=== PATIENT | male | born 1995 | race Caucasian/White ===

== ENCOUNTER 2018-10-22 19:56 | Emergency (ER) | payer OTHER, SELFPAY ==
[2018-10-22 20:10] VITALS: BP 146/87; PULSE 85; RESP 20; TEMP 36.9; O2SAT 100; BMI 21.9
--- NOTE | 2018-10-22 20:36 | HMH.EDUTC ---
[facility] – [place] Disposition Clinical Impression: Foreign body in eye Qualifiers: Encounter type: initial encounter Laterality: left Qualified Code(s): T15.92XA - Foreign body on external eye, part unspecified, left eye, initial encounter Disposition: Home, Self-Care Condition on Discharge: Good Instructions: DI for Foreign Body in the Eye Additional Instructions: Call Dr Johnson tomorrow at [phone] if any worsening of symptoms, pain in eye, signs of infection such as redness or drainage or vision changes *If no problems or complication and no worsening of eye pain or symptoms call [facility] Wednesday and advise them Dr Johnson wanted you seen in the clinic on Wednesday *Return if needed Do not scratch or rub eye Straight to ER if any life threatening symptoms Referrals: Provider,Referral, MD [Primary Care Provider] - Dr Aldo Johnson [Other] Medical Decision Making - Wilbert Inquiry Pt receiving controlled substance: No Wilbert was queried for this patient: No Vital Signs: 10/22/18 20:10 Temperature 98.4 F Temperature Source Oral Pulse Rate [Right Brachial] 85 Respiratory Rate 20 Blood Pressure [Right Arm] 146/87 H Blood Pressure Mean [Right Arm] 106 Blood Pressure Source [Right Arm] Automatic Cuff Blood Pressure Position [Right Arm] Sitting 02 Sat by Pulse Oximetry 100 Oxygen Delivery Method Room Air - Reevaluation(s) Time: 20:30 Reevaluation #1: Consulted with Dr Mcdaniel about transferring patient to ER due to foreign body in eye Dr Mcdaniel recommended contacting Dr Johnson and speaking with him about removal of piece of metal and further treatment instructions. Called Dr Johnson and he advised if the metal in the eye was not bothering the patient and no pain or signs of infection to give him his cell phone number and advise him to call him tomorrow if any worsening of symptoms to meet him at the clinic and remove the FB and if not then he would see him on Wednesday in the clinic Recommended not prescribing drop or ointment at this time at risk of causing infection that he would prescribe something when he took it out. Patient still denies trouble with vision or pain [facility] [place] HPI - General Stated complaint: AO 10/20/18 Possible FB in left eye Time Seen by Provider: 10/22/18 20:20 Mode of Arrival: Family Vehicle Source of Information: Patient Limitations: No Limitations Description of Symptoms (Recalled from Triage Doc. by RN): C/O METAL IN LEFT EYE HEENT Symptoms (Recalled from RN notes): Yes Resp Symptoms (Recalled from RN notes): No Skin Symptoms (Recalled from RN notes): No MS Symptoms (Recalled from RN notes): No Functional Status (Recalled from RN notes): N/A - History of Present Illness Provider Complaint: Patient states that he thinks he may have a small piece of metal in his left eye States that thinks it has been there since State that it hasn't been causing any pain or problems just at times when he blinks he can feel it and has been unable to get it out so he came in to see if it could be taken out here - Related Data Allergies Allergy/AdvReac Type Severity Reaction Status Date / Time No Known Allergies Allergy Verified 01/11/18 20:33 - Worker's Comp Is this a Worker's Comp case?: No H History - Hepatitis A Screen Drug use history?: No High risk sexual behaviors?: No History of sexually transmitted infection?: No Currently employed?: No Childcare worker?: No Do you have indoor plumbing?: Yes Do you have electricity?: Yes Attestation statement:: This patient has been screened for Hepatitis A risk factors. I have reviewed the patient's past medical history: Yes Medical History: Denies:: Diabetes Mellitus Type 1, Diabetes Mellitus Type 2 Other Surgeries: Yes: No Previous Surgery - Social History Smoking Status: Current every day smoker Tobacco Type: cigarettes # Packs/Day (cigarettes): 1 Alcohol Intake: never Occupational Status: other - Psychiatric History Ex
--- NOTE | 2018-10-22 20:39 | ED_ITS ---
[facility] [place] Clinical Impression: Foreign body in eye Qualifiers: Encounter type: initial encounter Laterality: left Qualified Code(s): T15.92XA - Foreign body on external eye, part unspecified, left eye, initial encounter Disposition: Home, Self-Care Condition on Discharge: Good Instructions: DI for Foreign Body in the Eye Additional Instructions: Call Dr Johnson tomorrow at [phone] if any worsening of symptoms, pain in eye, signs of infection such as redness or drainage or vision changes *If no problems or complication and no worsening of eye pain or symptoms call [facility] Wednesday and advise them Dr Johnson wanted you seen in the clinic on Wednesday *Return if needed Do not scratch or rub eye Straight to ER if any life threatening symptoms Referrals: Provider,Referral, MD [Primary Care Provider] - Dr Aldo Johnson [Other] Medical Decision Making - Wilbert Inquiry Pt receiving controlled substance: No Wilbert was queried for this patient: No Vital Signs: 10/22/18 20:10 Temperature 98.4 F Temperature Source Oral Pulse Rate [Right Brachial] 85 Respiratory Rate 20 Blood Pressure [Right Arm] 146/87 H Blood Pressure Mean [Right Arm] 106 Blood Pressure Source [Right Arm] Automatic Cuff Blood Pressure Position [Right Arm] Sitting 02 Sat by Pulse Oximetry 100 Oxygen Delivery Method Room Air - Reevaluation(s) Time: 20:30 Reevaluation #1: Consulted with Dr Mcdaniel about transferring patient to ER due to foreign body in eye Dr Mcdaniel recommended contacting Dr Johnson and speaking with him about removal of piece of metal and further treatment instructions. Called Dr Johnson and he advised if the metal in the eye was not bothering the patient and no pain or signs of infection to give him his cell phone number and advise him to call him tomorrow if any worsening of symptoms to meet him at the clinic and remove the FB and if not then he would see him on Wednesday in the clinic Recommended not prescribing drop or ointment at this time at risk of causing infection that he would prescribe something when he took it out. Patient still denies trouble with vision or pain [facility] [place] - General Stated complaint: AO 10/20/18 Possible FB in left eye Time Seen by Provider: 10/22/18 20:20 Mode of Arrival: Family Vehicle Source of Information: Patient Limitations: No Limitations Description of Symptoms (Recalled from Triage Doc. by RN): C/O METAL IN LEFT EYE HEENT Symptoms (Recalled from RN notes): Yes Resp Symptoms (Recalled from RN notes): No Skin Symptoms (Recalled from RN notes): No MS Symptoms (Recalled from RN notes): No Functional Status (Recalled from RN notes): N/A - History of Present Illness Provider Complaint: Patient states that he thinks he may have a small piece of metal in his left eye States that thinks it has been there since State that it hasn't been causing any pain or problems just at times when he blinks he can feel it and has been unable to get it out so he came in to see if it could be taken out here - Related Data Allergies Allergy/AdvReac Type Severity Reaction Status Date / Time No Known Allergies Allergy Verified 01/11/18 20:33 - Worker's Comp Is this a Worker's Comp case?: No [facility] History - Hepatitis A Screen Drug use history?: No High risk sexual behaviors?: No History of sexually transmitted infection?
[2018-10-22 20:56] VITALS: BP 146/87; PULSE 85; RESP 20; TEMP 36.9; O2SAT 100
== END 2018-10-22 20:57 | disposition home or self-care (01) ==
PROVIDERS: Emergency Provider Nurse Practitioner
DX: T15.92XA Foreign body on external eye, part unspecified, left eye, initial encounter (principal); F17.210 Nicotine dependence, cigarettes, uncomplicated
CPT/HCPCS: 99201

== ENCOUNTER → 2018-12-28 18:18 | Outpatient (CLI) | payer OTHER, SELFPAY ==
[2018-12-28 19:09] LABS: Basophils # 0.1 K/mm3 (0-0.2); Basophils % 0.6 % (0.1-2.0); Eosinophils # 0.1 K/mm3 (0.0-0.4); Eosinophils % 1.6 % (0.1-12.0); Hematocrit 49.3 % (42.0-52.0); Hemoglobin 16.5 g/dL (14.1-18.0); Lymphocytes # 2.7 K/mm3 (0.7-4.5); Lymphocytes % 28.9 % (10-50); Mean Corpuscular HGB Conc 33.4 g/dL (31.8-35.4); Mean Corpuscular Hemoglobin 28.7 pg (27.0-31.2); Mean Corpuscular Volume 85.9 fl (80-94); Mean Platelet Volume 7.6 fl (7.4-10.4); Monocytes # 0.7 K/mm3 (0.1-1.0); Monocytes % 7.3 % (1.7-9.3); Neutrophils # 5.7 K/mm3 (1.8-7.8); Neutrophils % 61.7 % (37.0-80.0); Platelet Count 382 K/mm3 (142-424); Red Blood Count 5.74 M/mm3 (4.60-6.20); Red Cell Distribution Width 12.7 % (11.5-17.5); White Blood Count 9.2 K/mm3 (4.8-10.8)
[2018-12-28 20:09] LABS: Erythrocyte Sedimentation Rate 2 mm/hr (0-15)
[2018-12-28 21:02] LABS: Alanine Aminotransferase 19 U/L (12-78); Albumin Level 4.7 gm/dL (3.4-5.0); Albumin/Globulin Ratio 1.5 (1.1-1.8); Alkaline Phosphatase 54 U/L (46-116); Anion Gap 13.2 mEq/L (5-15); Aspartate Amino Transferase 7 U/L (15-37); Bilirubin,Total 0.7 mg/dL (0.2-1.0); Blood Urea Nitrogen 11 mg/dL (7-18); Calcium 9.7 mg/dL (8.5-10.1); Carbon Dioxide 29 mmol/L (21.0-32.0); Chloride 101 mmol/L (98-107); Creatinine,Serum 0.73 mg/dL (0.70-1.30); Estimated Glomerular Filt Rate 132 ml/min (>60); GFR (African American) 160 ML/MIN (>60); Globulin 3.1 gm/dl (1.3-3.2); Glucose 98 mg/dL (74-106); Potassium 4.2 mmoL/L (3.5-5.1); Sodium 139 mmol/L (136-145); Total Protein,Serum 7.8 gm/dL (6.4-8.2)
[2018-12-28 21:08] LABS: C-Reactive Protein < 0.2 mg/dL (0.0-0.9)
[2018-12-30 09:27] LABS: Hep A Ab, IgM Negative (Negative); Hepatitis B Core Antibody IgM Negative (Negative); Hepatitis B Surface Antigen Negative (Negative)
[2018-12-30 09:47] LABS: Hepatitis C Antibody <0.1 s/co ratio (0.0-0.9)
== END ==
PROVIDERS: Visit Provider Emergency Medicine
DX: J02.9 Acute pharyngitis, unspecified (principal); M54.5 Low back pain; R51 Headache
CPT/HCPCS: 80053; 80074; 85025; 85651; 86140

== ENCOUNTER → 2019-01-06 14:49 | Outpatient (CLI) | payer OTHER, SELFPAY ==
--- NOTE | 2019-01-06 14:50 | CT_ITS ---
PROCEDURE: CT SINUS WO CON CLINICAL HISTORY: Sinusitis COMPARISON: No exams were available for comparison TECHNIQUE: Axial images obtained with sagittal and coronal reformats. All CT scans at the facility use one or more dose reduction, viz: automated exposure control, ma/kV adjustment per patient size (including targeted exams where dose is matched to indication, i.e. head), or iterative reconstruction technique. FINDINGS: There is complete opacification of the right frontal sinus and moderate opacification of the anterior ethmoids on the right and posterior ethmoids bilaterally. There is only minimal mucosal thickening of the maxillary sinuses inferiorly. There is a prominent nasal septal spur inferiorly projecting toward the left causing severe narrowing of the left nasal canal. There are small bilateral crissy bullosa. The ostiomeatal units are narrowed bilaterally. TMJs have an unremarkable appearance. The orbits have an unremarkable appearance. IMPRESSION: 1. Paranasal sinus inflammatory changes of the right frontal and ethmoid sinuses bilaterally the 2. Comes left for projecting septal spur causing severe narrowing of the left nasal canal inferiorly Dictated by: Addy Rizo MD 01/06/2019 16:57 Signed by: <Electronically signed by Addy Rizo MD in [place]> 01/06/2019 16:57
== END ==
PROVIDERS: PCP Emergency Medicine; Visit Provider Otolaryngology
DX: J32.9 Chronic sinusitis, unspecified (principal)
CPT/HCPCS: 70486

== ENCOUNTER → 2019-05-30 17:10 | Outpatient (CLI) | payer OTHER, SELFPAY ==
[2019-05-30 18:49] LABS: Free T4 (Free Thyroxine) 1.15 ng/dl (0.76-1.46); Thyroid Stimulating Hormone 3.38 uIU/ml (0.358-3.740)
== END ==
PROVIDERS: Visit Provider Emergency Medicine
DX: R22.9 Localized swelling, mass and lump, unspecified (principal)
CPT/HCPCS: 84439; 84443

== ENCOUNTER → 2019-06-19 14:17 | Outpatient (CLI) | payer OTHER, SELFPAY ==
--- NOTE | 2019-06-19 14:17 | CT_ITS ---
PROCEDURE: CT SOFT TISSUE NECK W CON CLINICAL HISTORY: soft tissue swelling Right neck mass COMPARISON: CT SINUS WO CON from 01/06/2019 TECHNIQUE: Oral Contrast: 75ml Optiray 350 IV Contrast: None Axial images obtained with sagittal and coronal reformats. All CT scans at the facility use one or more dose reduction, viz: automated exposure control, ma/kV adjustment per patient size (including targeted exams where dose is matched to indication, i.e. head), or iterative reconstruction technique. FINDINGS: A BB is placed over the palpable abnormality of the right neck. Just deep to the BB is the sternocleidomastoid muscle and a small subcutaneous vein. No soft tissue mass or adenopathy is evident at this region. No cervical adenopathy apparent. No abscess or other abnormality evident. The salivary glands, nasopharynx, oropharynx, hypopharynx, and glottic region have an unremarkable appearance. The lung apices are clear aside from some minimal fibrotic change. IMPRESSION: No obvious neck mass apparent. There is a normal appearing sternocleidomastoid present deep to the placed BB. There is a small subcutaneous vein deep to the placed BB. Dictated by: Addy Rizo MD 06/19/2019 15:21 Electronically signed by Addy Rizo MD in [place] 06/19/2019 15:21
== END ==
PROVIDERS: PCP Emergency Medicine; Visit Provider Emergency Medicine
DX: R22.9 Localized swelling, mass and lump, unspecified (principal)
CPT/HCPCS: 70491; Q9967

== ENCOUNTER 2020-04-16 09:59 | Emergency (ER) | payer BC, SELFPAY ==
[2020-04-16 10:07] VITALS: BP 139/81; PULSE 90; RESP 19; TEMP 37.1; O2SAT 98; BMI 20.3
--- NOTE | 2020-04-16 10:17 | HMH.EDUTC ---
[facility] – [place] Disposition Clinical Impression: Sinusitis Qualifiers: Sinusitis location: unspecified location Chronicity: unspecified Qualified Code(s): J32.9 - Chronic sinusitis, unspecified Disposition: Home, Self-Care Condition on Discharge: Good Instructions: Sinusitis, Sinus Headache, Amoxicillin and Clavulanic Acid Additional Instructions: *Monitor Temp, Over the counter Motrin or Tylenol as directed/as needed Tylenol every 4 hours and Motrin every 6 hours (as long as your family doctor has told you that you can take it) for fever or pain. and straight to ER if unable to lower temp less than 101.0 after medication given *Warm salt water gargles may help to soothe the throat *Throat Lozenges *Warm fluids like tea with honey may help to soothe the throat *Sleep elevated *Humidifier/Vaporizer Follow up IMMEDIATELY for new or worsening symptoms or no Noticeable improvement over the next 48-72 hours. 911 for difficulty breathing or swallowing You were tested for today for COVID19 your test result should be back in the next 24-48 hours, you may call to the [facility] to see if your test results are back in the next 48 hours [phone] [facility] hours are 9am-9pm You was given a handout with instructions for Self Quarantine and Self isolation for while you wait on test results and what to do if they are positive If you are positive the Health Dept will be contacting you also Prescriptions: Amoxicillin/Potassium Clav [Augmentin 875-125 Tablet] 1 tab PO Q12H 10 Days #20 tab Transmission Status: Pending to [facility] methylPREDNISolone [Medrol 4mg tab] 4 mg PO DIRECTED #21 tab Transmission Status: Pending to [facility] Referrals: Ronald Mcdaniel MD [Primary Care Provider] - As needed Forms: Work/School Release Time of Disposition: 10:32 Medical Decision Making - Wilbert Inquiry Pt receiving controlled substance: No Wilbert was queried for this patient: No Vital Signs: 04/16/20 10:07 Temperature 98.7 F Temperature Source Oral Pulse Rate [Radial] 90 Respiratory Rate 19 Blood Pressure [Right Arm] 139/81 Blood Pressure Mean [Right Arm] 100 Blood Pressure Source [Right Arm] Automatic Cuff Blood Pressure Position [Right Arm] Sitting 02 Sat by Pulse Oximetry 98 Oxygen Delivery Method Room Air - Lab Data Lab results reviewed: Yes: I reviewed the patient's lab results. Orders (Tests/Meds): ORDERS Category Date Time Status Covid-19 Nasal PCR Sendout Jaspreet Stat Lab 04/16/20 10:11 Ordered [facility] [place] HPI - General Stated complaint: body aches, chills Time Seen by Provider: 04/16/20 10:17 Mode of Arrival: Ambulatory Source of Information: Patient Limitations: No Limitations Description of Symptoms (Recalled from Triage Doc. by RN): body aches, chills, dry cough x 3 days HEENT Symptoms (Recalled from RN notes): Yes Resp Symptoms (Recalled from RN notes): No Skin Symptoms (Recalled from RN notes): No MS Symptoms (Recalled from RN notes): No Functional Status (Recalled from RN notes): wnl - History of Present Illness Provider Complaint: Patient state that he has been having sinus pain and pressure, scratchy throat, body aches dry cough State that he has a history of sinus problems States that he was worried that he may have COVID and wanted to get checked for flu and COVID - Related Data Previous Rx's Medication Instructions Recorded Amoxicillin/Potassium Clav 1 tab PO Q12H 14 Days #28 tab 05/26/19 [Augmentin 875-125 Tablet] Amoxicillin/Potassium Clav 1 tab PO Q12H 10 Days #20 tab 04/16/20 [Augmentin 875-125 Tablet] methylPREDNISolone [Medrol 4mg 4 mg PO DIRECTED #21 tab 04/16/20 tab] Allergies Allergy/AdvReac Type Severity Reaction Status Date / Time No Known Allergies Allergy Verified 05/30/19 16:10 - Worker's Comp Is this a Worker's Comp case?: No [facility] History - Hepatitis A Screen Drug use history?: No High risk sexual behaviors?: No History
[2020-04-16 10:34] VITALS: BP 139/81; PULSE 90; RESP 19; TEMP 37.1; O2SAT 98
[2020-04-16 19:52] LABS: UTC Influenza A Antigen Negative (Negative)
[2020-04-16 19:53] LABS: UTC Influenza B Antigen Negative (Negative)
[2020-04-17 13:55] LABS: Covid-19 Nasal PCR Sendout Lex POSITIVE
--- NOTE | 2020-04-17 14:04 | PC.NURSE ---
Patient notified of positive COVID results. Educated on quarantine.
== END 2020-04-16 10:41 | disposition home or self-care (01) ==
PROVIDERS: Emergency Provider Nurse Practitioner; PCP Emergency Medicine
DX: U07.1 COVID-19 (principal); J32.9 Chronic sinusitis, unspecified
CPT/HCPCS: 87804; 99201; U0004

== ENCOUNTER → 2020-07-17 18:50 | Outpatient (CLI) | payer BC, SELFPAY ==
[2020-07-17 19:02] LABS: Basophils % 0.5 % (0.1-2.0); Eosinophils # 0.2 K/mm3 (0.0-0.4); Eosinophils % 2.7 % (0.1-12.0); Hematocrit 46.3 % (42.0-52.0); Hemoglobin 15.3 g/dL (14.1-18.0); Lymphocytes # 2.4 K/mm3 (0.7-4.5); Lymphocytes % 30.9 % (10-50); Mean Corpuscular Hemoglobin 28.8 pg (27.0-31.2); Mean Corpuscular Volume 87.2 fl (80-94); Monocytes # 0.5 K/mm3 (0.1-1.0); Monocytes % 6.4 % (1.7-9.3); Neutrophils # 4.5 K/mm3 (1.8-7.8); Neutrophils % 59.5 % (37.0-80.0); Platelet Count 331 K/mm3 (142-424); Red Cell Distribution Width 13.1 % (11.5-17.5); White Blood Count 7.6 K/mm3 (4.8-10.8)
[2020-07-17 19:05] LABS: Alanine Aminotransferase 15 U/L (12-78); Albumin Level 4.9 g/dl (3.5-5.0); Albumin/Globulin Ratio 1.7 (1.1-1.8); Alkaline Phosphatase 52 U/L (38-126); Amylase 72 U/L (30-110); Anion Gap 15.6 mEq/L (5-15); Aspartate Amino Transferase 26 U/L (17-59); Bilirubin,Total 0.7 mg/dl (0.2-1.3); Blood Urea Nitrogen 11 mg/dl (9-20); Calcium 9.6 mg/dl (8.4-10.2); Carbon Dioxide 26 mmol/L (22.0-30.0); Chloride 101 mmol/L (98-107); Estimated Glomerular Filt Rate 137 ml/min (>60); GFR (African American) 166 ML/MIN (>60); Globulin 2.9 g/dL (1.3-3.2); Glucose 86 mg/dl (74-100); Lipase 55 U/L (23-300); Potassium 4.6 mmoL/L (3.5-5.1); Sodium 138 mmol/L (136-145); Total Protein,Serum 7.8 g/dl (6.3-8.2)
== END ==
PROVIDERS: Visit Provider Emergency Medicine
DX: R10.11 Right upper quadrant pain (principal); K21.9 Gastro-esophageal reflux disease without esophagitis; R53.83 Other fatigue
CPT/HCPCS: 80053; 82150; 83690; 85025

== ENCOUNTER 2021-01-24 20:13 | Emergency (ER) | payer OTHER, SELFPAY ==
--- NOTE | 2021-01-24 20:04 | ECG_ITS ---
APPROVED REPORT Exam: Resting ECG HR:97 bpm ECG Measurements Heart Rate 97 AXES WA 134 P 83 QRSd 108 QRS 87 QT 340 T 58 QTc 431 Conclusion Normal sinus rhythm Possible Left atrial enlargement Incomplete right bundle branch block Borderline ECG Electronically signed by : Chano Menon MD 01/25/2021 21:10:49
[2021-01-24 20:13] VITALS: BP 137/89; PULSE 99; RESP 15; TEMP 37.1; O2SAT 100; BMI 20.3
--- NOTE | 2021-01-24 20:19 | HMH.EDGENADL ---
ED Disposition Clinical Impression: Atypical chest pain Disposition: Home, Self-Care Condition on Discharge: Good Instructions: DI for Atypical Chest Pain Additional Instructions: You may take ibuprofen for pain. Additional instructions for CHEST PAIN: See your physician as soon as possible for further evaluation. Return immediately if worsening chest pain, vomiting, shortness of breath, fever, coughing of blood. Referrals: Ronald Mcdaniel MD [Primary Care Provider] - - Critical Care Critical Care Time: No Attestation: On , the high probability of a clinically significant, sudden or life threatening deterioration of the following system(s) required my full and direct attention, intervention and personal management. The time I documented below is in addition to time spent performing reported procedures but includes the following listed in this critical care notation. Medical Decision Making - Wilbert Inquiry Pt receiving controlled substance: No Vital Signs: 01/24/21 20:13 01/24/21 20:47 Temperature 98.8 F Temperature Source Oral Pulse Rate [Right] 99 H Respiratory Rate 15 15 Blood Pressure 151/86 H Blood Pressure [Right Arm] 137/89 Blood Pressure Mean [Right Arm] 105 Blood Pressure Source [Right Arm] Automatic Cuff 02 Sat by Pulse Oximetry 100 100 Oxygen Delivery Method Room Air Room Air - Lab Data Lab Results 01/24/21 20:08: WBC 10.8, RBC 5.72, Hgb 17.3, Hct 49.8, MCV 87.1, MCH 30.2, MCHC 34.6, RDW 12.2, Plt Count 333, MPV 7.6, Neut % (Auto) 68.6, Lymph % (Auto) 23.0, [place] % (Auto) 6.0, Eos % (Auto) 2.0, Baso % (Auto) 0.5, Neut # (Auto) 7.4, Lymph # (Auto) 2.5, [place] # (Auto) 0.6, Eos # (Auto) 0.2, Baso # (Auto) 0.1 01/24/21 20:08: Sodium 140, Potassium 3.5, Chloride 101, Carbon Dioxide 26, Anion Gap 16.5 H, BUN 12, Creatinine 0.70, Estimated Creat Clear 133, Estimated GFR 136, Est GFR ( Amer) 165, Glucose 103 H, Calcium 9.7, Troponin I < 0.01 Result diagrams: 01/24/21 20:08 01/24/21 20:08 Orders (Tests/Meds): ED MEDICATIONS Discontinued Medications Generic Name Dose Route Start Last Admin Trade Name Freq PRN Reason Stop Dose Admin Ketorolac Tromethamine 30 mg 01/24/21 20:50 01/24/21 20:51 Ketorolac 30mg/Ml Vial IV 01/24/21 20:51 30 mg ONCE ONE Administration ORDERS Category Date Time Status Troponin I Q3H Lab 01/24/21 23:30 Ordered Troponin I Q3H Lab 01/25/21 02:30 Ordered - Radiology Data #1 Image(s): Chest Image Reviewed: Yes I reviewed the patient's radiology image, Yes I have reviewed radiologist's interpretation PROCEDURE INFORMATION: Exam: XR Chest Exam date and time: 01/24/21 08:19 PM Age: 25 years old Clinical indication: Pain; Left-sided; Additional info: Cp, SOA left chest pain TECHNIQUE: Imaging protocol: XR of the chest. Views: 2 views. COMPARISON: CT SOFT TISSUE NECK W CON 06/19/19 02:59 PM FINDINGS: Lungs: Unremarkable. No consolidation. Pleural spaces: Unremarkable. No pleural effusion. No pneumothorax. Heart/Mediastinum: Unremarkable. No cardiomegaly. Bones/joints: Unremarkable. IMPRESSION: No acute findings. - ECG Data Tracing #1 EKG interpreted by Bala Koo MD: Rhythm: sinus Rate: 89 [place]: normal Ectopy: none Conduction: Incomplete right bundle branch block ST Segment Changes: none T Wave Changes: none Q Waves: none No evidence of acute ischemia or injury - KARLI Score for Non-Stemi Age of Patient: <30 years old Heart Rate: 90-109 bpm Systolic Blood Pressure: 120-139 mmhg Serum Creatinine: 0.40-0.79 mg/dl CHF [place] Class: I-No CHF Other Risk Factors: None Non-Stemi Risk Score: 53 Medical Decision Narrative: PULMONARY EMBOLISM RULE-OUT CRITERIA: 1. Age > 49? No 2. Pulse greater than 99/min? No 3. Room air pulse ox <95%? No 4. Hemoptysis? No 5. On estrogen? No 6. Prior diagnosis
[2021-01-24 20:31] LABS: Basophils # 0.1 K/mm3 (0-0.2); Basophils % 0.5 % (0.1-2.0); Eosinophils # 0.2 K/mm3 (0.0-0.4); Hematocrit 49.8 % (42.0-52.0); Hemoglobin 17.3 g/dL (14.1-18.0); Lymphocytes # 2.5 K/mm3 (0.7-4.5); Mean Corpuscular HGB Conc 34.6 g/dL (31.8-35.4); Mean Corpuscular Hemoglobin 30.2 pg (27.0-31.2); Mean Corpuscular Volume 87.1 fl (80-94); Mean Platelet Volume 7.6 fl (7.4-10.4); Monocytes # 0.6 K/mm3 (0.1-1.0); Neutrophils # 7.4 K/mm3 (1.8-7.8); Neutrophils % 68.6 % (37.0-80.0); Platelet Count 333 K/mm3 (142-424); Red Blood Count 5.72 M/mm3 (4.60-6.20); Red Cell Distribution Width 12.2 % (11.5-17.5); White Blood Count 10.8 K/mm3 (4.8-10.8)
[2021-01-24 20:41] LABS: Chloride 101 mmol/L (98-107)
[2021-01-24 20:42] LABS: Potassium 3.5 mmoL/L (3.5-5.1); Sodium 140 mmol/L (136-145)
[2021-01-24 20:45] LABS: Anion Gap 16.5 mEq/L (5-15); Blood Urea Nitrogen 12 mg/dl (9-20); Calcium 9.7 mg/dl (8.4-10.2); Carbon Dioxide 26 mmol/L (22.0-30.0); Creatinine Clearance Estimated 133 mL/min (50-200); Estimated Glomerular Filt Rate 136 ml/min (>60); GFR (African American) 165 ML/MIN (>60); Glucose 103 mg/dl (74-100)
[2021-01-24 20:47] VITALS: BP 151/86; RESP 15; O2SAT 100
[2021-01-24 20:58] LABS: Troponin I < 0.01 ng/ml (0.00-0.034)
[2021-01-24 21:23] VITALS: BP 142/85; PULSE 89; RESP 16; TEMP 37.1; O2SAT 100
== END 2021-01-24 21:24 | disposition home or self-care (01) ==
PROVIDERS: Emergency Provider Emergency Medicine; PCP Emergency Medicine
DX: R07.89 Other chest pain (principal)
CPT/HCPCS: 71046; 80048; 84484; 85025; 93005; 96374; 99283

== ENCOUNTER 2021-03-10 18:08 | Emergency (ER) | payer OTHER, SELFPAY ==
[2021-03-10 19:20] VITALS: BP 130/78; PULSE 65; RESP 20; TEMP 37.1; O2SAT 100; BMI 21.1
--- NOTE | 2021-03-10 19:53 | HMH.EDUTC ---
[facility] [place]: Strep [place] Disposition: Home, Self-Care Condition on Discharge: Good Instructions: Strep Throat, DI for Strep Throat Additional Instructions: Drink plenty of fluids. Take tylenol or ibuprofen for pain or fever. Take the medications as directed. Follow up with your regular doctor. GO TO THE ER FOR ANY WORSENING SYMPTOMS Throw your tooth brush away and get a new one. Prescriptions: Brompheniramine/Pseudoephed/Dm [Bromfed Dm Cough Syrup] 5 ml PO Q6HP PRN #240 ml PRN Reason: Cough Transmission Status: Received by [id number] Amoxicillin [Amoxicillin 500mg Tab] 500 mg PO TID 10 Days #30 tab Transmission Status: Received by [id number] predniSONE [Deltasone 10mg tablet] 10 mg PO BID 3 Days #6 tab Transmission Status: Received by [id number] Referrals: Ronald Mcdaniel MD [Primary Care Provider] - Forms: Work/School Release Time of Disposition: 19:58 Medical Decision Making - Medical Records Medical records reviewed: No: I reviewed the patient's medical records. - Wilbert Inquiry Pt receiving controlled substance: No Vital Signs: 03/10/21 19:20 03/10/21 19:56 Temperature 98.7 F 98.7 F Temperature Source Oral Pulse Rate 65 Pulse Rate [Right Brachial] 65 Respiratory Rate 20 20 Blood Pressure 130/78 Blood Pressure [Right Arm] 130/78 Blood Pressure Mean [Right Arm] 95 Blood Pressure Source [Right Arm] Automatic Cuff Blood Pressure Position [Right Arm] Sitting 02 Sat by Pulse Oximetry 100 Oxygen Delivery Method Room Air - Lab Data Lab results reviewed: Yes: I reviewed the patient's lab results. Lab Results 03/10/21 19:38: Strep Scn Rapid Clinic Positive [place] [facility] [place] - General Stated complaint: strep and covid test Time Seen by Provider: 03/10/21 19:54 Mode of Arrival: Ambulatory Source of Information: Patient Limitations: No Limitations Description of Symptoms (Recalled from Triage Doc. by RN): PATIENT C/O RUNNY NOSE AND SORE THROAT. SON WAS RECENTLY EXPOSED TO STREP HEENT Symptoms (Recalled from RN notes): Yes Resp Symptoms (Recalled from RN notes): No Skin Symptoms (Recalled from RN notes): No MS Symptoms (Recalled from RN notes): No Functional Status (Recalled from RN notes): WNL - History of Present Illness Provider Complaint: He c/o sore throat for the past 2 days. His currently has strep throat. - Related Data Previous Rx's Medication Instructions Recorded Amoxicillin [Amoxicillin 500mg Tab] 500 mg PO TID 10 Days #30 tab 03/10/21 Brompheniramine/Pseudoephed/Dm 5 ml PO Q6HP PRN #240 ml 03/10/21 [Bromfed Dm Cough Syrup] predniSONE [Deltasone 10mg tablet] 10 mg PO BID 3 Days #6 tab 03/10/21 Allergies Allergy/AdvReac Type Severity Reaction Status Date / Time No Known Allergies Allergy Verified 07/17/20 15:04 - Worker's Comp Is this a Worker's Comp case?: No [facility] History - Hepatitis A Screen Drug use history?: No High risk sexual behaviors?: No History of sexually transmitted infection?: No Currently employed?: No Childcare worker?: No Do you have indoor plumbing?: Yes Do you have electricity?: Yes Attestation statement:: This patient has been screened for Hepatitis A risk factors. I have reviewed the patient's past medical history: Yes Medical History: Denies:: Cancer, Diabetes Mellitus Type 1, Diabetes Mellitus Type 2, MRSA Other Surgeries: Yes: No Previous Surgery Amputation: No Fractures: Yes - Social History Smoking Status: Never smoker Tobacco Type: smokeless tobacco # Packs/Day (cigarettes): 0 Alcohol Intake: never Occupational Status: other Housing: house Household Members: significant other, children Family Hx:: No significant family history ROS Obtained: Yes All systems reviewed & no additional complaints - Constitutional Constitutional: Reports as per HPI - Eyes Eyes: Denies blurry vision - ENT Ears, Nose, Mouth, and Throat:
[2021-03-10 19:56] VITALS: BP 130/78; PULSE 65; RESP 20; TEMP 37.1; O2SAT 100
[2021-03-10 20:08] LABS: UTC Strep Screen (Rapid) Positive (Negative)
== END 2021-03-10 20:08 | disposition home or self-care (01) ==
PROVIDERS: Emergency Provider Nurse Practitioner Family; PCP Emergency Medicine
DX: J02.0 Streptococcal pharyngitis (principal)
CPT/HCPCS: 87880; 99202; G0463

== ENCOUNTER 2022-03-31 15:04 | Emergency (ER) | payer OTHER, SELFPAY ==
[2022-03-31 15:05] VITALS: BP 149/75; PULSE 103; RESP 16; TEMP 37.2; O2SAT 98; BMI 21.9
[2022-03-31 15:59] LABS: Coronavirus 19, PCR Not Detected (NotDetected); Influenza B, PCR Not Detected (NotDetected)
--- NOTE | 2022-03-31 16:25 | HMH.EDGENADL ---
Discharge Plan Disposition Patient Disposition: Home, Self-Care Condition: Good Prescriptions Prescriptions: New oseltamivir [Tamiflu] 75 mg capsule 75 mg PO BID Qty: 10 0RF No Action prednisone 10 MG tablet 10 mg PO BID 3 Days Qty: 6 0RF amoxicillin 500 MG tablet 500 mg PO TID 10 Days Qty: 30 0RF qnvmvucqvmtbnlb-gchdwoybv-CN 118 ML syrup 5 ml PO Q6HP PRN (Reason: Cough) Qty: 240 0RF Referrals Follow up/Referrals: Ronald Mcdaniel MD [Primary Care Provider] - See instructions Activity Restrictions/Add. Instructions Additional Instructions/Restrictions: ADDITIONAL INSTRUCTIONS FOR INFLUENZA (FLU): Rest, drink plenty of fluids. Tylenol or Ibuprofen for fever and/or aches and pains. Monitor your symptoms. IF YOU HAVE AN EMERGENCY WARNING SIGN (INCLUDING TROUBLE BREATHING), SEEK EMERGENCY MEDICAL CARE IMMEDIATELY. Influenze Isolation: People with influenza should isolate for 5 days. Then if they are asymptomatic (no symptoms) or their symptoms are resolving (without fever for 24 hours), you may end isolation. What to do: Stay in a separate room from other household members, if possible. Use a separate bathroom, if possible. Avoid contact with other members of the household and pets. Don?t share personal household items, like cups, towels, and utensils. Wear a mask when around other people if able. Clinical Impressions Clinical Impression: Influenza A Stand Alone Forms Stand Alone Forms: Work/School Release Instructions Patient Instructions: DI for Influenza -- Adult Discharge ED Provider: Bala Koo General Adult HPI General Chief complaint: Upper Respiratory Infection Stated complaint: Fever,Congestion Time Seen by Provider: 03/31/22 16:05 Mode of Arrival: Ambulatory Limitations: No Limitations Description of Symptoms (Recalled from ER Triage Doc. by RN): pt advises he started feeling bad last night with body aches, headaches, chills and a fever Pt advises he took tylenol and motrin this afternoon History of Present Illness HPI narrative: 2-day history of body aches, headaches, fever up to 102.2. Mild cough. No earache, rhinorrhea, or sore throat. No vomiting or diarrhea. Exposed to coworker with flu a week ago. He has not had a flu vaccine this year. He is taking ibuprofen and acetaminophen. He took a dose of acetaminophen right before coming to the emergency department. 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 Related Data Previous Rx's Medication Instructions Recorded amoxicillin 500 mg tablet 500 mg PO TID 10 days #30 tabs 03/10/21 aipztamnrqcpkoo-ddrixjjxjsdskco-FR 5 ml PO Q6HP PRN Cough #240 mL 03/10/21 2 mg-30 mg-10 mg/5 mL oral syrup prednisone 10 mg tablet 10 mg PO BID 3 days #6 tabs 03/10/21 oseltamivir 75 mg capsule (Tamiflu) 75 mg PO BID #10 caps 03/31/22 Allergies Allergy/AdvReac Type Severity Reaction Status Date / Time No Known Allergies Allergy Verified 07/17/20 15:04 PFSH PFS Social History Smoking Status: Light tobacco smoker tobacco type: smokeless tobacco alcohol intake: never current occupational status: other Travel in the last 8 weeks: None household members: significant other and children housing: house current occupational exposures/hazards: No ROS Obtained: Yes Systems reviewed as appropriate & no additional complaints except as documented Constitutional Constitutional: Reports body ache, Reports fever(s) and Reports headache(s) ENT Ears, Nose, Mouth, and Throat: Denies otalgia, Reports headache(s), Denies nasal discharge and Denies sore throat Cardiovascular Cardiovascular: Denies chest pain Respiratory Respiratory: Denies shortness of breath and Reports cough Gastrointestinal Gastrointestingal: Denies abdominal pain, constipation, diarrhea or vomiting Genitourinary Male Genitourinary: Denies difficulty urinating and Denies f
[2022-03-31 16:29] LABS: Influenza A, PCR Detected (NotDetected)
--- NOTE | 2022-03-31 16:35 | PC.NURSE ---
rounded on pt and updated him on POC. No new needs
[2022-03-31 16:53] VITALS: BP 124/86; PULSE 67; RESP 16; TEMP 37.2; O2SAT 98
== END 2022-03-31 16:55 | disposition home or self-care (01) ==
PROVIDERS: Emergency Provider Emergency Medicine; PCP Emergency Medicine
DX: J10.1 Influenza due to other identified influenza virus with other respiratory manifestations (principal); J06.9 Acute upper respiratory infection, unspecified; R51.9 Headache, unspecified; M79.10 Myalgia, unspecified site; F17.290 Nicotine dependence, other tobacco product, uncomplicated; Z20.822 Contact with and (suspected) exposure to COVID-19; Z79.52 Long term (current) use of systemic steroids
CPT/HCPCS: 99283; C9803; U0003; U0005

== ENCOUNTER 2023-03-13 16:04 | Emergency (ER) | payer OTHER, SELFPAY ==
[2023-03-13 16:15] VITALS: BP 142/88; PULSE 83; RESP 18; TEMP 37.2; O2SAT 98; BMI 21.2
[2023-03-13 16:29] LABS: UTC Strep Screen (Rapid) Negative (Negative)
--- NOTE | 2023-03-13 16:58 | EXP.UTC ---
Discharge Plan Disposition Patient Disposition: Home, Self-Care Condition: Good Prescriptions Prescriptions: New azithromycin [azithromycin] 250 mg tablet 250 mg PO DIRECTED Qty: 6 0RF Rx Instructions: Take two (2) tablets on day #1, then one (1) tablet day #2 thru #5 Referrals Follow up/Referrals: Ronald Mcdaniel MD [Primary Care Provider] - See instructions Activity Restrictions/Add. Instructions Additional Instructions/Restrictions: Start antibiotics today be sure to take it as ordered with the full length of time although you should start feeling better in 24-48 hours. Change toothbrush and toothpaste 24-48 hours after starting antibiotics Tylenol or Motrin as needed for fever or pain Encourage fluids, water, Gatorade, Powerade, try cold fluids, popsicles, ice cream will make it feel better You are contagious for 24 hours. Avoid kissing anyone, no eating or drinking after anyone. You are contagious. Follow-up the ER for new or worsening symptoms or no noticeable improvement over the next 24-48 hours. Follow-up with PCP this week. Clinical Impressions Clinical Impression: Strep throat Instructions Patient Instructions: DI for Strep Throat Discharge ED Provider: Mata ([facility] [place] General Stated complaint: exposed to strep sore throat Mode of Arrival: Ambulatory Source of Information: Patient Limitations: No Limitations Time Seen by Provider: 03/13/23 16:58 Description of Symptoms (Recalled from Triage Doc. by RN): sore throat, fever HEENT Symptoms (Recalled from RN notes): Yes Resp Symptoms (Recalled from RN notes): No Skin Symptoms (Recalled from RN notes): No MS Symptoms (Recalled from RN notes): No Functional Status (Recalled from RN notes): n/a History of Present Illness Provider Complaint: 27 yr old male presents for sore throat and fever, son has strep Related Data Previous Rx's Medication Instructions Recorded azithromycin 250 mg tablet 250 mg PO DIRECTED #6 tabs 03/13/23 Allergies Allergy/AdvReac Type Severity Reaction Status Date / Time No Known Allergies Allergy Verified 03/13/23 16:36 Worker's Comp Is this a Worker's Comp case?: No [facility] Disclaimer: The information contained in this section may have been updated after the patient was seen, as this information can be updated by other users. Social History , [employer]IDE) Smoking Status: Light tobacco smoker tobacco type: smokeless tobacco alcohol intake: never current occupational status: other Travel in the last 8 weeks: None household members: significant other and children housing: house current occupational exposures/hazards: No ROS Obtained: Yes All systems reviewed & no additional complaints except as documented Constitutional Constitutional: Reports system reviewed and no additional complaints, except as documented, Reports as per HPI and Reports fever(s) Eyes Eyes: Reports system reviewed and no additional complaints, except as documented ENT Ears, Nose, Mouth, and Throat: Reports system reviewed and no additional complaints, except as documented, Reports as per HPI and Reports sore throat Cardiovascular Cardiovascular: Reports system reviewed and no additional complaints, except as documented Respiratory Respiratory: Reports system reviewed and no additional complaints, except as documented Gastrointestinal Gastrointestingal: Reports system reviewed and no additional complaints, except as documented Integumentary/Breasts Skin/Breast: Reports system reviewed and no additional complaints, except as documented Neurologic Neurologic: Reports system reviewed and no additional complaints, except as documented Endocrine Endocrine: Reports system reviewed and no additional complaints, except as documented Hematologic/Lymphatic Henatologic/Lymphatic: Reports system reviewed and no additional complaints, except as documented Phys
[2023-03-13 17:19] VITALS: BP 142/88; PULSE 83; RESP 18; TEMP 37.2; O2SAT 98
== END 2023-03-13 17:19 | disposition home or self-care (01) ==
PROVIDERS: Emergency Provider Nurse Practitioner Family; PCP Emergency Medicine
DX: J02.0 Streptococcal pharyngitis (principal); R50.9 Fever, unspecified; F17.290 Nicotine dependence, other tobacco product, uncomplicated
CPT/HCPCS: 87880; 99212; 99214; G0463

== ENCOUNTER 2024-02-16 22:16 | Emergency (ER) | payer OTHER, SELFPAY ==
[2024-02-16 22:17] VITALS: BP 164/88; PULSE 83; RESP 16; TEMP 36.9; O2SAT 99; BMI 22.7
--- NOTE | 2024-02-16 22:19 | HMH.EDGENADL ---
Discharge Plan Disposition Patient Disposition: Home, Self-Care Condition: Good Prescriptions Prescriptions: No Action azithromycin [azithromycin] 250 mg tablet 250 mg PO DIRECTED Qty: 6 0RF Rx Instructions: Take two (2) tablets on day #1, then one (1) tablet day #2 thru #5 Referrals Follow up/Referrals: Adilson Riggs DO [Primary Care Provider] - See instructions Activity Restrictions/Add. Instructions Additional Instructions/Restrictions: You were evaluated in the ER and are appropriate for discharge at this time. Take an dkpi-iel-[id number] antihistamine such as Zyrtec if needed for itching. Follow-up with your primary care doctor. Return to the ER if you develop severe symptoms such as difficulty swallowing or breathing, vomiting, hives, or any other new or worsening symptoms. Clinical Impressions Clinical Impression: Bee sting, Local reaction to bee sting Print Language Print Language: Yakut Discharge ED Provider: Ranulfo Oneill General Adult HPI <PUSHPA Mancia - Last Filed: 02/16/24 22:33> General Chief complaint: Allergic Reaction Stated complaint: bee sting on face, swelling Time Seen by Provider: 02/16/24 22:19 History of Present Illness HPI narrative: Patient presents for evaluation of facial swelling after being stung. Patient thinks he was stung somewhere in his right upper forehead by possibly a honeybee. Patient was cutting down a tree and states that he saw what he thought were honey bees on the ground. He did not actually see what stung him but was able to remove the stinger. He has a reported allergy to bee stings but does not have an EpiPen. Does not show clear what his allergy actually is. Patient however is noted that he is having some periorbital and perinasal swelling. He does not however have any itching difficulty breathing or wheezing chest pain. Related Data Previous Rx's ?Medication ?Instructions ?Recorded azithromycin 250 mg tablet 250 mg PO DIRECTED #6 tabs 03/13/23 Allergies Allergy/AdvReac Type Severity Reaction Status Date / Time No Known Allergies Allergy Verified 03/13/23 16:36 [facility] <PUSHPA Mancia - Last Filed: 02/16/24 22:33> [facility] Disclaimer: The information contained in this section may have been updated after the patient was seen, as this information can be updated by other users. 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 smoker alcohol intake: never current occupational status: other Travel in the last 8 weeks: None household members: significant other and children housing: house current occupational exposures/hazards: No Other Medical History Have you received the Flu Vaccine for this season: No Have you received the Pneumonia Vaccine: No <PUSHPA Mancia - Last Filed: 02/16/24 22:33> ROS Obtained: Yes Systems reviewed as appropriate & no additional complaints except as documented Physical Exam <PUSHPA Mancia - Last Filed: 02/16/24 22:33> General General appearance: alert and in no apparent distress Respiratory Respiratory exam: Present normal lung sounds bilaterally Cardiovascular Cardiovascular exam: Present regular rate and normal heart sounds Abdominal Exam Abdominal exam: Present soft and normal bowel sounds; Absent tenderness, guarding or rebound Extremities Exam Extremities exam: Present normal inspection and full ROM Neurological Exam Neurological exam: Present alert, oriented X3 and CN II-XII intact Medical Decision Making <PUSHPA Mancia - Last Filed: 02/16/24 22:33> Medical Records Medical records reviewed: Yes I reviewed the patient's medical records. Screening: Per USPSTF and CDC recommendations, given the prevalence of disease in our region, it is our hospital?s policy to screen for HIV and viral Hepatitis for all patients aged 18 and over and those with ongoing risk factors. Wilbert Inquiry Pt receiving controlled substance: No Vital Signs: 02/16/24 22:17 02/16/24 22:31 02/16/24 23:00 Temperature 98.4 F Temperature Source Oral Pulse Rate 77 74 Pulse Rate [Right] 83 Respiratory Rate 16 Blood Pressure 140/83 131/90 Blood Pressure [Right Arm] 164/88 H Blood Pressure Mean [Right Arm] 113 02 Sat by Pulse Oximetry 99 98 98 Oxygen Delivery Method Room Air 02/16/24 23:30 02/16/24 23:56 Temperature 98.4 F Temperature Source Oral Pulse Rate 74 67 Pulse Rate [Right] Respiratory Rate 16 Blood Pressure 121/79 121/79 Blood Pressure [Right Arm] Blood Pressure Mean [Right Arm] 02 Sat by Pulse Oximetry 98 Oxygen Delivery Method Room Air Lab Data Lab results reviewed: Yes I reviewed the patient's lab results. Orders (Tests/Meds): ED MEDICATIONS Discontinued Medications Generic Name Dose Route Start Last Admin Trade Name Lui PRN Reason Stop Dose Admin Dexamethasone Sodium Phosphate 10 mg 02/16/24 22:21 Dexamethasone 4mg/Ml 5ml Mdv IV 02/16/24 22:22 ONCE ONE Diphenhydramine HCl 50 mg 02/16/24 22:21 Diphenhydramine 50mg/Ml Vial IV 02/16/24 22:22 ONCE ONE Diphenhydramine HCl 50 mg 02/16/24 22:23 02/16/24 22:30 Diphenhydramine 25mg Capsule PO 02/16/24 22:24 50 mg ONCE ONE Administration Prednisone 60 mg 02/16/24 22:23 02/16/24 22:30 Prednisone 20mg Tab PO 02/16/24 22:24 60 mg ONCE ONE Administration Medical Decision Narrative: In summary patient is a 28-year-old male who presents to the emergency department for evaluation of insect sting. Patient is normotensive with a normal heart rate and normal oxygen saturation normal respiratory rate upon arrival, afebrile. Physical exam reveals slight facial swelling, right greater than left around the eyes and across the bridge of the nose but there is no ocular involvement patient has full range of motion of his eyes without pain pupils are equal and reactive to light with no extraocular pain, breath sounds are clear and equal bilaterally to the bases. Differential diagnosis includes insect sting versus possible anaphylaxis although less likely given the timeframe. Patient was stung around 5 30-6 o'clock. Initial workup was considered however patient is in no distress with no red flags for pulmonary or cardiovascular involvement. Initial interventions include prednisone and Benadryl orally along with continuous cardiac monitoring and continuous pulse oximetry. Initial workup initiated at 2230 and is pending at the time of handoff to Dr. Bae at 2300 hrs. <Brien Bae MD - Last Filed: 02/17/24 00:01> Vital Signs: 02/16/24 22:17 02/16/24 22:31 02/16/24 23:00 Temperature 98.4 F Temperature Source Oral Pulse Rate 77 74 Pulse Rate [Right] 83 Respiratory Rate 16 Blood Pressure 140/83 131/90 Blood Pressure [Right Arm] 164/88 H Blood Pressure Mean [Right Arm] 113 02 Sat by Pulse Oximetry 99 98 98 Oxygen Delivery Method Room Air 02/16/24 23:30 02/16/24 23:56 Temperature 98.4 F Temperature Source Oral Pulse Rate 74 67 Pulse Rate [Right] Respiratory Rate 16 Blood Pressure 121/79 121/79 Blood Pressure [Right Arm] Blood Pressure Mean [Right Arm] 02 Sat by Pulse Oximetry 98 Oxygen Delivery Method Room Air Orders (Tests/Meds): ED MEDICATIONS Discontinued Medications Generic Name Dose Route Start Last Admin Trade Name Lui PRN Reason Stop Dose Admin Dexamethasone Sodium Phosphate 10 mg 02/16/24 22:21 Dexamethasone 4mg/Ml 5ml Mdv IV 02/16/24 22:22 ONCE ONE Diphenhydramine HCl 50 mg 02/16/24 22:21 Diphenhydramine 50mg/Ml Vial IV 02/16/24 22:22 ONCE ONE Diphenhydramine HCl 50 mg 02/16/24 22:23 02/16/24 22:30 Diphenhydramine 25mg Capsule PO 02/16/24 22:24 50 mg ONCE ONE Administration Prednisone 60 mg 02/16/24 22:23 02/16/24 22:30 Prednisone 20mg Tab PO 02/16/24 22:24 60 mg ONCE ONE Administration Medical Decision Narrative: In summary patient is a 28-year-old male who presents to the emergency department for evaluation of insect sting. Patient is normotensive with a normal heart rate and normal oxygen saturation normal respiratory rate upon arrival, afebrile. Physical exam reveals slight facial swelling, right greater than left around the eyes and across the bridge of the nose but there is no ocular involvement patient has full range of motion of his eyes without pain pupils are equal and reactive to light with no extraocular pain, breath sounds are clear and equal bilaterally to the bases. Differential diagnosis includes insect sting versus possible anaphylaxis although less likely given the timeframe. Patient was stung around 5 30-6 o'clock. Initial workup was considered however patient is in no distress with no red flags for pulmonary or cardiovascular involvement. Initial interventions include prednisone and Benadryl orally along with continuous cardiac monitoring and continuous pulse oximetry. Initial workup initiated at 2230 and is pending at the time of handoff to Dr. Bae at 2300 hrs. Bae: Upon my assumption of care patient is stable, resting comfortably, he has already received antihistamine treatment, he had no findings of multisystem organ involvement, no hypotension, no findings of anaphylaxis or angioedema. I agree with the assessment and plan from primary providers. Patient will be monitored to ensure improvement of symptoms. On reassessment 1.5 hours after receiving medications, patient has had improvement of the very mild swelling around his eyes. I believe he is appropriate for discharge at this time. With no findings of anaphylaxis, angioedema, or even a large local reaction (patient had mild localized reaction) he does not require any new prescriptions or EpiPen. Patient was given instructions on symptomatic management, follow up instructions, and return precautions for the emergency department. Patient indicated understanding and was discharged in stable condition. <Ranulfo Oneill MD - Last Filed: 02/17/24 14:01> Vital Signs: 02/16/24 22:17 02/16/24 22:31 02/16/24 23:00 Temperature 98.4 F Temperature Source Oral Pulse Rate 77 74 Pulse Rate [Right] 83 Respiratory Rate 16 Blood Pressure 140/83 131/90 Blood Pressure [Right Arm] 164/88 H Blood Pressure Mean [Right Arm] 113 02 Sat by Pulse Oximetry 99 98 98 Oxygen Delivery Method Room Air 02/16/24 23:30 02/16/24 23:56 Temperature 98.4 F Temperature Source Oral Pulse Rate 74 67 Pulse Rate [Right] Respiratory Rate 16 Blood Pressure 121/79 121/79 Blood Pressure [Right Arm] Blood Pressure Mean [Right Arm] 02 Sat by Pulse Oximetry 98 Oxygen Delivery Method Room Air Orders (Tests/Meds): ED MEDICATIONS Discontinued Medications Generic Name Dose Route Start Last Admin Trade Name Freq PRN Reason Stop Dose Admin Dexamethasone Sodium Phosphate 10 mg 02/16/24 22:21 Dexamethasone 4mg/Ml 5ml Mdv IV 02/16/24 22:22 ONCE ONE Diphenhydramine HCl 50 mg 02/16/24 22:21 Diphenhydramine 50mg/Ml Vial IV 02/16/24 22:22 ONCE ONE Diphenhydramine HCl 50 mg 02/16/24 22:23 02/16/24 22:30 Diphenhydramine 25mg Capsule PO 02/16/24 22:24 50 mg ONCE ONE Administration Prednisone 60 mg 02/16/24 22:23 02/16/24 22:30 Prednisone 20mg Tab PO 02/16/24 22:24 60 mg ONCE ONE Administration Medical Decision Narrative: In summary patient is a 28-year-old male who presents to the emergency department for evaluation of insect sting. Patient is normotensive with a normal heart rate and normal oxygen saturation normal respiratory rate upon arrival, afebrile. Physical exam reveals slight facial swelling, right greater than left around the eyes and across the bridge of the nose but there is no ocular involvement patient has full range of motion of his eyes without pain pupils are equal and reactive to light with no extraocular pain, breath sounds are clear and equal bilaterally to the bases. Differential diagnosis includes insect sting versus possible anaphylaxis although less likely given the timeframe. Patient was stung around 5 30-6 o'clock. Initial workup was considered however patient is in no distress with no red flags for pulmonary or cardiovascular involvement. Initial interventions include prednisone and Benadryl orally along with continuous cardiac monitoring and continuous pulse oximetry. Initial workup initiated at 2230 and is pending at the time of handoff to Dr. Bae at 2300 hrs. I was consulted by the [facility], and we discussed the complexity of the problems being addressed.I approved the treatment and management plan for this patient?s care in the Emergency Department, thus performing a substantive portion of the medical decision making.Signed, Ranulfo Oneill MD Bae: Upon my assumption of care patient is stable, resting comfortably, he has already received antihistamine treatment, he had no findings of multisystem organ involvement, no hypotension, no findings of anaphylaxis or angioedema. I agree with the assessment and plan from primary providers. Patient will be monitored to ensure improvement of symptoms. On reassessment 1.5 hours after receiving medications, patient has had improvement of the very mild swelling around his eyes. I believe he is appropriate for discharge at this time. With no findings of anaphylaxis, angioedema, or even a large local reaction (patient had mild localized reaction) he does not require any new prescriptions or EpiPen. Patient was given instructions on symptomatic management, follow up instructions, and return precautions for the emergency department. Patient indicated understanding and was discharged in stable condition. Critical Care <PUSHPA Mancia - Last Filed: 02/16/24 22:33> Critical Care Time Critical Care Time: No
[2024-02-16] MEDS: predniSONE 20MG TAB 60 MG PO (22:30)
[2024-02-16] MEDS: diphenhydrAMINE 25MG CAPSULE 50 MG PO (22:30)
[2024-02-16 22:31] VITALS: BP 140/83; PULSE 77; O2SAT 98
[2024-02-16 23:00] VITALS: BP 131/90; PULSE 74; O2SAT 98
[2024-02-16 23:30] VITALS: BP 121/79; PULSE 74; O2SAT 98
[2024-02-16 23:56] VITALS: BP 121/79; PULSE 67; RESP 16; TEMP 36.9; O2SAT 99
== END 2024-02-17 | disposition home or self-care (01) ==
PROVIDERS: Emergency Provider Emergency Medicine; PCP Internal Medicine
DX: T63.441A Toxic effect of venom of bees, accidental (unintentional), initial encounter (principal); R22.0 Localized swelling, mass and lump, head
CPT/HCPCS: 99282